=== PATIENT | male | born 1990 ===

== ENCOUNTER 2017-02-26 13:28 | Emergency (ER) | payer SELFPAY ==
[2017-02-26 13:40] VITALS: BP 140/90; PULSE 74; RESP 18; O2SAT 99
--- NOTE | 2017-02-26 14:12 | ED PDOC ---
HPI: CCC, URI, Sore Throat Time Seen by Provider: 02/26/17 14:05 Chief Complaint (Nursing): ENT Problem Chief Complaint (Provider): ENT Problem History Per: Patient History/Exam Limitations: no limitations Have you had recent travel within the past 21 days to any of the following countries: [place], [place], [place] or [place]?: No Onset/Duration Of Symptoms: Days (x2 weeks) Current Symptoms Are (Timing): Still Present Additional Complaint(s): Paulino Szymanski is a 26 year old male that presents to the ED with a chief complaint of a sore throat, pain with swallowing, fatigue, body aches, and nightly fevers that he has been experiencing for the past two weeks. Patient reports that he took Amoxicillin twice. He denies any cough or recent travel. Past Medical History Reviewed: Historical Data, Nursing Documentation, Vital Signs Vital Signs: Last Vital Signs Temp Pulse 74 02/26/17 13:34 Resp 18 02/26/17 13:34 BP 140/90 02/26/17 13:34 Pulse Ox 99 02/26/17 14:29 - Medical History PMH: No Chronic Diseases - Family History Family History: States: Unknown Family Hx - Home Medications Home Medications: Ambulatory Orders Medication Instructions Recorded Amoxicillin/Potassium Clav 1 tab PO BID #14 tab 02/26/17 [Augmentin 500 mg-125 mg] - Allergies Allergies/Adverse Reactions: Allergies Allergy/AdvReac Type Severity Reaction Status Date / Time No Known Allergies Allergy Verified 02/26/17 13:33 Review of Systems Constitutional: Positive for: Fever (nightly), Other (diffuse myalgias, fatigue) ENT: Positive for: Throat Pain (sore throat, pain with swallowing) Respiratory: Negative for: Cough Physical Exam - Reviewed Nursing Documentation Reviewed: Yes Vital Signs Reviewed: Yes - Physical Exam Appears: Positive for: Non-toxic, No Acute Distress Head Exam: Positive for: ATRAUMATIC, NORMOCEPHALIC Skin: Positive for: Normal Color, Warm Eye Exam: Positive for: Normal appearance, EOMI, PERRL ENT: Positive for: Tonsillar Exudate (white patches noted to tonsils), Tonsillar Swelling (b/l), Other (Uvula note deviated or swollen. Lymph node swelling noted.). Negative for: Normal ENT Inspection Cardiovascular/Chest: Positive for: Regular Rate, Rhythm. Negative for: Murmur Respiratory: Positive for: Normal Breath Sounds. Negative for: Wheezing Neurologic/Psych: Positive for: Alert, Oriented. Negative for: Motor/Sensory Deficits - ECG O2 Sat by Pulse Oximetry: 99 (RA) Pulse Ox Interpretation: Normal Medical Decision Making Medical Decision Making: Impression: Strep Throat vs. [facility] Plan: * Rapid Strep Test * [facility] * Reevaluation * * al ltest (-) for strep and mon * pt will get augmentin however due to extent of exdudate and advsied to have pmd f.u and ENT f/u Scribe Attestation: Documented by Margie Tenorio, acting as a scribe for Dalila Swift PA-C. Provider Scribe Attestation: All medical record entries made by the Scribe were at my direction and personally dictated by me. I have reviewed the chart and agree that the record accurately reflects my personal performance of the history, physical exam, medical decision making, and the department course for this patient. I have also personally directed, reviewed, and agree with the discharge instructions and disposition. Disposition - Clinical Impression Clinical Impression: Tonsillitis - Patient ED Disposition Is Patient to be Admitted: No Counseled Patient/Family Regarding: Need For Followup, Rx Given - Disposition Referrals: [facility] [Provider Group] Disposition: Routine/Home Disposition Time: 15:29 Condition: STABLE Prescriptions: Amoxicillin/Potassium Clav [Augmentin 500 mg-125 mg] 1 tab PO BID #14 tab Instructions: Tonsillitis (ED) Forms: [employer] (Liberian)
== END 2017-02-26 16:43 | disposition home or self-care (01) ==
LOC: H.ER 13:28
DX: J03.90 Acute tonsillitis, unspecified (principal)

== ENCOUNTER 2018-08-08 15:18 | Emergency (ER) | payer OTHER, SELFPAY ==
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
--- NOTE | 2018-08-08 18:02 | RAD ---
Date of service: 08/08/2018 HISTORY: Medical clearance COMPARISON: No prior. FINDINGS: LUNGS: No active pulmonary disease. PLEURA: No significant pleural effusion identified, no pneumothorax apparent. CARDIOVASCULAR: No atherosclerotic calcification present Normal. OSSEOUS STRUCTURES: No significant abnormalities. VISUALIZED UPPER ABDOMEN: Normal. OTHER FINDINGS: None. IMPRESSION: No active disease.
[2018-08-08 18:22] LABS: SQUAMOUS EPITHIAL < 1 /hpf (0-5); URINE BACTERIA RARE (<OCC); URINE BILIRUBIN NEGATIVE (NEGATIVE); URINE BLOOD NEGATIVE (NEGATIVE); URINE CLARITY SLIGHTY-CLOUDY (Clear); URINE COLOR YELLOW (YELLOW); URINE GLUCOSE (UA) NEG (NEGATIVE); URINE LEUKOCYTE ESTERASE NEG Leu/uL (Negative); URINE PROTEIN NEGATIVE (NEGATIVE); URINE UROBILINOGEN 0.2-1.0 mg/dL (0.2-1.0)
[2018-08-08 18:23] LABS: BASO % 0.3 % (0.0-2.0); EOS % 0.4 % (0.0-4.0); HEMOGLOBIN 14.8 g/dL (12.0-18.0); LYMPH # 1.5 K/uL (1.0-4.3); LYMPH % 13.5 % (20.0-40.0); MEAN CORPUSCULAR HEMOGLOBIN 30.1 pg (27.0-31.0); MEAN CORPUSCULAR HGB CONC 33.5 g/dL (33.0-37.0); MEAN PLATELET VOLUME 8.8 fl (7.2-11.7); MONO # 0.5 K/uL (0.0-0.8); MONO % 4.7 % (0.0-10.0); NEUT # 8.9 K/uL (1.8-7.0); NEUT % 81.1 % (50.0-75.0); RBC 4.9 Mil/uL (4.40-5.90); RED CELL DISTRIBUTION WIDTH 12.9 % (11.5-14.5)
[2018-08-08 18:28] LABS: ALB/GLOB RATIO 1.2 (1.0-2.1); ALBUMIN 4.7 g/dL (3.5-5.0); ALT/SGPT 13 U/L (21-72); AST/SGOT 20 U/L (17-59); BLOOD UREA NITROGEN 14 mg/dl (9-20); CALCIUM 9.9 mg/dL (8.4-10.2); GFR NON-AFRICAN AMERICAN > 60
[2018-08-08 18:33] LABS: ACETAMINOPHEN < 10.0 ug/ml (10.0-30.0); SALICYLATE < 1.0 mg/dl
[2018-08-08 18:36] LABS: BARBITURATES, UR NEGATIVE (NEGATIVE); BENZODIAZEPINES, UR NEGATIVE (NEGATIVE); OPIATES, UR NEGATIVE (NEGATIVE); PHENCYCLIDINE, UR NEGATIVE (NEGATIVE)
--- NOTE | 2018-08-08 22:53 | ED PDOC ---
- Laboratory Results Result Diagrams: 08/08/18 18:04 08/08/18 18:04 Lab Results: Total Bilirubin 0.7 mg/dl (0.2-1.3) 08/08/18 18:04 AST 20 U/L (17-59) 08/08/18 18:04 ALT 13 U/L (21-72) L 08/08/18 18:04 Alkaline Phosphatase 84 U/L (38-126) 08/08/18 18:04 Total Protein 8.5 G/DL (6.3-8.2) H 08/08/18 18:04 Albumin 4.7 g/dL (3.5-5.0) 08/08/18 18:04 Globulin 3.8 gm/dL (2.2-3.9) 08/08/18 18:04 Albumin/Globulin Ratio 1.2 (1.0-2.1) 08/08/18 18:04 Urine Color Yellow (YELLOW) 08/08/18 17:58 Urine Clarity Slighty-cloudy (Clear) 08/08/18 17:58 Urine pH 6.0 (5.0-8.0) 08/08/18 17:58 Ur Specific [place] 1.015 (1.003-1.030) 08/08/18 17:58 Urine Protein Negative mg/dL (NEGATIVE) 08/08/18 17:58 Urine Glucose (UA) Neg mg/dL (NEGATIVE) 08/08/18 17:58 Urine Ketones Negative mg/dL (NEGATIVE) 08/08/18 17:58 Urine Blood Negative (NEGATIVE) 08/08/18 17:58 Urine Nitrate Negative (NEGATIVE) 08/08/18 17:58 Urine Bilirubin Negative (NEGATIVE) 08/08/18 17:58 Urine Urobilinogen 0.2-1.0 mg/dL (0.2-1.0) 08/08/18 17:58 Ur Leukocyte Esterase Neg Markos/uL (Negative) 08/08/18 17:58 Urine RBC (Auto) 3 /hpf (0-3) 08/08/18 17:58 Urine Microscopic WBC 1 /hpf (0-5) 08/08/18 17:58 Ur Squamous Epith Cells < 1 /hpf (0-5) 08/08/18 17:58 Urine Bacteria Rare (<OCC) 02/19/19 17:58 - ECG O2 Sat by Pulse Oximetry: 99 (RA) Pulse Ox Interpretation: Normal Medical Decision Making Medical Decision Making: Receiving sign out: Patient signed out to me by Dr. Perez at 2250 pending [facility] screen, disposition. 01:50 Patient cleared crisis evaluation by Dr. Allen and Dr. Dial. Patient will go to [facility] to follow up. Crisis team has identified patient has a friend to stay with for safe discharge. Patient agrees to plan. He has no psychiatric or physical complaints at this time. Scribe Attestation: Documented by Linda Davidson and Armani Lopes acting as a scribe for Eliza Suarez MD. Provider Attestation: All medical record entries made by the Scribe were at my direction and personally dictated by me. I have reviewed the chart and agree that the record accurately reflects my personal performance of the history, physical exam, [facility] [place] decision making, and the department course for this patient. I have also personally directed, reviewed, and agree with the discharge instructions and disposition. Disposition - Disposition Condition: STABLE Forms: [employer] (Angolan)
[2018-08-09 02:05] VITALS: BP 137/72; PULSE 75; RESP 151; TEMP 98.2
--- NOTE | 2018-08-09 09:03 | CARD ---
APPROVED REPORT Date of service: 08/08/2018 EKG Measurement Heart [id number] <Conclusion> Normal sinus rhythm Normal ECG
[2018-08-09 18:02] VITALS: O2SAT 99
== END 2018-08-09 02:05 | disposition home or self-care (01) ==
LOC: H.ER 15:18
DX: F32.9 Major depressive disorder, single episode, unspecified (principal)